=== PATIENT | female | born 2005 | race Caucasian/White ===

== ENCOUNTER 2023-10-28 08:27 | Inpatient (IN) | payer OTHER, SELFPAY ==
[2023-10-28] MEDS ORDERED: Ondansetron ODT 4 MG TAB PO PRN (10:09)
[2023-10-28] MEDS ORDERED: Senokot S 8.6-50 MG TAB PO PRN (10:09)
[2023-10-28] MEDS ORDERED: Ondansetron PF 4 MG/2 ML Vial IVP PRN (10:09)
[2023-10-28] MEDS ORDERED: Calcium Carbonate 500 MG ChewTAB PO PRN (10:09)
[2023-10-28] MEDS ORDERED: Dextrose 5% in Water 1,000 ML IV PRN (10:14)
[2023-10-28] MEDS ORDERED: Glucagon 1 MG/ML KIT IM PRN (10:14)
[2023-10-28] MEDS ORDERED: HumaLOG 300 UNITS/3 ML VIAL SC PRN (10:14)
[2023-10-28] MEDS ORDERED: Dextrose 50% Abboject 50 ML SYRINGE SLOW IVP PRN ×2 (10:14→22:04)
[2023-10-28 10:57] VITALS: BMI 21.1
[2023-10-28] MEDS: Ipratropium/Albuterol 3 ML NEB NEB PRN ×4 (11:30→23:40)
[2023-10-28] MEDS ORDERED: Oseltamivir 75 MG CAP PO SCH (12:00)
[2023-10-28] MEDS: HumaLOG 300 UNITS/3 ML VIAL SC PRN ×2 (12:01→15:57)
[2023-10-28] MEDS ORDERED: Sodium Chloride 0.9% 1,000 ML IV SCH ×2 (12:30→21:00)
[2023-10-28] MEDS: Benzonatate 100 MG CAP PO PRN ×2 (13:19→21:51)
[2023-10-28] MEDS: Acetaminophen 325 MG TAB PO PRN ×2 (13:19→21:31)
[2023-10-28 15:09] LABS: #Monocytes 0.1 10x3/uL (0.0-1.1); #Neutrophils 5.9 10x3/uL (1.5-8.4); %Basophils 0.3 % (0.0-2.0); %Eosinophils 0.2 % (0.0-6.0); %Lymphocytes 3.9 % (18.0-47.0); %Monocytes 2.2 % (0.0-10.0); %Neutrophils 92.9 % (40.0-75.0); Hematocrit 40.9 % (34.9-44.5); Hemoglobin 13.5 g/dL (12.0-15.5); Mean Corpuscular Hemoglobin 28.7 pg (27.0-33.0); Mean Corpuscular Volume 86.8 fl (81.6-98.3); Mean Platelet Volume 9.3 fl (7.4-10.4); Platelet Count 265 10x3/uL (150-450); RBC Distribution Width 13.3 % (11.5-14.5); Red Blood Cell (RBC) Count 4.71 10x6/uL (3.90-5.03); White Blood Cell (WBC) Count 6.4 10x3/uL (3.5-10.5)
[2023-10-28 15:16] LABS: Anion Gap 14 mmol/L (10-20); BUN (Urea Nitrogen) 6 mg/dL (7.0-18.7); Calc. Creatinine Clearance 113 mL/min (70-130); Calcium 8.9 mg/dL (7.8-10.44); Carbon Dioxide 19 mmol/L (22-29); Chloride 105 mmol/L (98-107); Estimated GFR 113; Glucose 224 mg/dL (70-105); Magnesium 2.1 mg/dL (1.7-2.2); Potassium 4.1 mmol/L (3.5-5.1); Sodium 134 mmol/L (136-145)
[2023-10-28] MEDS ORDERED: methylPREDNISolone Sod Succ/PF 125 MG/2 ML VIAL IVP SCH (16:30)
[2023-10-28] MEDS ORDERED: Lactated Ringer's 1,000 ML IV SCH (20:30)
[2023-10-28] MEDS: Oseltamivir 75 MG CAP PO SCH (20:38)
[2023-10-28] MEDS ORDERED: Lantus 1000 UNITS/10 ML VIAL SC SCH (21:00)
[2023-10-28 21:26] LABS: #Monocytes 0.2 10x3/uL (0.0-1.1); #Neutrophils 10.1 10x3/uL (1.5-8.4); %Basophils 0.2 % (0.0-2.0); %Eosinophils 0.1 % (0.0-6.0); %Lymphocytes 2.2 % (18.0-47.0); %Monocytes 1.7 % (0.0-10.0); %Neutrophils 95.4 % (40.0-75.0); Hematocrit 43.6 % (34.9-44.5); Hemoglobin 14.4 g/dL (12.0-15.5); Mean Corpuscular Hemoglobin 28.6 pg (27.0-33.0); Mean Corpuscular Volume 86.7 fl (81.6-98.3); Mean Platelet Volume 9.5 fl (7.4-10.4); Platelet Count 263 10x3/uL (150-450); RBC Distribution Width 13.4 % (11.5-14.5); Red Blood Cell (RBC) Count 5.03 10x6/uL (3.90-5.03); White Blood Cell (WBC) Count 10.6 10x3/uL (3.5-10.5)
[2023-10-28] MEDS: cefTRIAXone\\ROCEPHIN 2 GM in Sodium Chloride 0.9% 100 ML IVPB SCH (21:29)
[2023-10-28 21:44] LABS: Anion Gap 19 mmol/L (10-20); BUN (Urea Nitrogen) 7 mg/dL (7.0-18.7); Calc. Creatinine Clearance 101 mL/min (70-130); Calcium 9.5 mg/dL (7.8-10.44); Carbon Dioxide 19 mmol/L (22-29); Chloride 99 mmol/L (98-107); Estimated GFR 99; Glucose 266 mg/dL (70-105); Phosphorus 3.6 mg/dL (2.3-4.7); Potassium 4.5 mmol/L (3.5-5.1); Sodium 132 mmol/L (136-145)
[2023-10-28] MEDS: Azithromycin 500 MG in Sodium Chloride 0.9% 250 ML 250 ML IVPB SCH (21:44)
[2023-10-28] MEDS ORDERED: Electrolyte Replacement Protocol 1 EACH IVPB PRN (22:04)
[2023-10-28] MEDS ORDERED: D5 1/2 NS w/20 mEq KCL 1,000 ML IV PRN (22:04)
[2023-10-28] MEDS ORDERED: NS 0.9% w/ 20 MEQ KCL 1,000 ML IV PRN (22:04)
[2023-10-28] MEDS ORDERED: Sodium Chloride 0.9% 1,000 ML IV PRN ×2 (22:04)
[2023-10-28] MEDS ORDERED: Dextrose 5 %-0.45 % NaCl 1,000 ML IV PRN (22:04)
[2023-10-28 22:11] LABS: Bilirubin Neg (Negative); Blood, Urine 10 (Negative); Clarity Clear (Clear); Glucose, Urine (Dipstick) >=1000 mg/dL (Negative); Ketone, Urine 150 mg/dL (Negative); Leukocyte Negative (Negative); Nitrite Negative (Negative); Protein, Urine (Dipstick) 30 mg/dl (Neg-Trace); Urobilinogen Normal mg/dL (Less than 2)
[2023-10-28 22:25] LABS: Bacteria/HPF None Seen HPF (None Seen); CAUTI Indications for Culture Fever or rigors; RBC/HPF 0-3 HPF (0-3); Urine Culture Reflex No No; WBC/HPF 0-3 HPF (0-3)
[2023-10-28] MEDS ORDERED: INSULIN REGULAR IN 0.9 % NACL 100 UNITS in Premix 1 BAG IVPB SCH (23:45)
[2023-10-28] MEDS: NS 0.9% w/ 20 MEQ KCL 1,000 ML IV PRN (23:55)
[2023-10-28] MEDS ORDERED: Magnesium 2 GM/50 ML(in water) 2 GM in Premix 1 BAG IVPB SCH (23:59)
[2023-10-29 00:11] LABS: Lactic Acid 1.2 mmol/L (0.5-2.2)
[2023-10-29] MEDS ORDERED: Lorazepam 2 MG/ML VIAL SLOW IVP SCH (00:15)
[2023-10-29] MEDS: NS 0.9% w/ 20 MEQ KCL 1,000 ML IV PRN (01:49)
[2023-10-29] MEDS: Ipratropium/Albuterol 3 ML NEB NEB PRN ×4 (03:15→18:29)
[2023-10-29 03:16] LABS: Hematocrit 38.7 % (34.9-44.5); Hemoglobin 12.8 g/dL (12.0-15.5); Mean Corpuscular HGB CONC 33.1 g/dL (32.0-36.0); Mean Corpuscular Hemoglobin 29.4 pg (27.0-33.0); Mean Platelet Volume 9.5 fl (7.4-10.4); Platelet Count 225 10x3/uL (150-450); RBC Distribution Width 13.4 % (11.5-14.5); Red Blood Cell (RBC) Count 4.35 10x6/uL (3.90-5.03); White Blood Cell (WBC) Count 10.1 10x3/uL (3.5-10.5)
[2023-10-29 03:36] LABS: MDiff Complete? YES
[2023-10-29 03:40] LABS: Band 18 % (5-11); Lymphocytes 6 % (28-48); Monocytes 3 % (0-4); Neutrophil 70 % (31-61); Reactive Lymphocytes 3 % (0-10)
[2023-10-29 03:43] LABS: Platelet Adequacy Comment Appears Adequate; RBC Morph Comment Within Normal Limits; Vacuoles SLIGHT
[2023-10-29] MEDS ORDERED: Budesonide 0.5 MG/2 ML NEB INH SCH (04:00)
[2023-10-29] MEDS: methylPREDNISolone Sod Succ 40 MG VIAL IVP SCH ×2 (04:01→15:42)
[2023-10-29 04:13] LABS: ALT (SGPT) 12 U/L (8-55); AST (SGOT) 29 U/L (5-34); Albumin 3.6 g/dL (3.5-5.0); Alkaline Phosphatase 56 U/L (40-100); Anion Gap 12 mmol/L (10-20); BUN (Urea Nitrogen) 6 mg/dL (7.0-18.7); Bilirubin, Total 0.2 mg/dL (0.2-1.2); Calc. Creatinine Clearance 126 mL/min (70-130); Calcium 8.3 mg/dL (7.8-10.44); Carbon Dioxide 21 mmol/L (22-29); Chloride 106 mmol/L (98-107); Estimated GFR 127; Globulin 2.8 g/dL (2.4-3.5); Glucose 97 mg/dL (70-105); Potassium 4.6 mmol/L (3.5-5.1); Protein, Total 6.4 g/dL (6.0-8.3); Sodium 134 mmol/L (136-145)
[2023-10-29] MEDS: Enoxaparin 40 MG (0.4 mL) SYRINGE SC SCH (08:01)
[2023-10-29] MEDS: Oseltamivir 75 MG CAP PO SCH ×2 (08:01→20:49)
[2023-10-29 08:08] LABS: Anion Gap 14 mmol/L (10-20); BUN (Urea Nitrogen) 5 mg/dL (7.0-18.7); Calc. Creatinine Clearance 132 mL/min (70-130); Calcium 8.6 mg/dL (7.8-10.44); Carbon Dioxide 19 mmol/L (22-29); Chloride 106 mmol/L (98-107); Estimated GFR 127; Glucose 197 mg/dL (70-105); Potassium 4.6 mmol/L (3.5-5.1); Sodium 134 mmol/L (136-145)
[2023-10-29] MEDS ORDERED: Lantus 1000 UNITS/10 ML VIAL SC SCH (11:45)
[2023-10-29] MEDS ORDERED: Sodium Chloride 0.9% 1,000 ML IV SCH (11:59)
[2023-10-29 15:21] LABS: Anion Gap 13 mmol/L (10-20); BUN (Urea Nitrogen) 7 mg/dL (7.0-18.7); Calc. Creatinine Clearance 121 mL/min (70-130); Calcium 8.6 mg/dL (7.8-10.44); Carbon Dioxide 22 mmol/L (22-29); Chloride 102 mmol/L (98-107); Estimated GFR 115; Glucose 287 mg/dL (70-105); Potassium 4.7 mmol/L (3.5-5.1); Sodium 132 mmol/L (136-145)
[2023-10-29] MEDS: HumaLOG 300 UNITS/3 ML VIAL SC PRN ×2 (15:21→20:30)
[2023-10-29 16:24] VITALS: BP 99/65; TEMP 98.5
[2023-10-29] MEDS: Budesonide 0.5 MG/2 ML NEB INH SCH (18:31)
[2023-10-29] MEDS: cefTRIAXone\\ROCEPHIN 2 GM in Sodium Chloride 0.9% 100 ML IVPB SCH (20:49)
[2023-10-29] MEDS: Azithromycin 500 MG in Sodium Chloride 0.9% 250 ML 250 ML IVPB SCH (20:50)
[2023-10-30] MEDS: HumaLOG 300 UNITS/3 ML VIAL SC PRN ×3 (00:36→12:47)
[2023-10-30 03:15] LABS: #Eosinphils 0.1 10x3/uL (0.0-0.5); #Monocytes 0.5 10x3/uL (0.0-1.1); #Neutrophils 6.4 10x3/uL (1.5-8.4); %Basophils 0.2 % (0.0-2.0); %Eosinophils 0.8 % (0.0-6.0); %Lymphocytes 14.3 % (18.0-47.0); %Monocytes 6.4 % (0.0-10.0); %Neutrophils 77.8 % (40.0-75.0); Hematocrit 38.1 % (34.9-44.5); Hemoglobin 12.8 g/dL (12.0-15.5); Mean Corpuscular HGB CONC 33.6 g/dL (32.0-36.0); Mean Corpuscular Hemoglobin 29.4 pg (27.0-33.0); Mean Corpuscular Volume 87.6 fl (81.6-98.3); Mean Platelet Volume 9.7 fl (7.4-10.4); Platelet Count 236 10x3/uL (150-450); RBC Distribution Width 13.6 % (11.5-14.5); Red Blood Cell (RBC) Count 4.35 10x6/uL (3.90-5.03); White Blood Cell (WBC) Count 8.3 10x3/uL (3.5-10.5)
[2023-10-30 03:25] LABS: Anion Gap 14 mmol/L (10-20); BUN (Urea Nitrogen) 9 mg/dL (7.0-18.7); Calc. Creatinine Clearance 118 mL/min (70-130); Calcium 8.7 mg/dL (7.8-10.44); Carbon Dioxide 24 mmol/L (22-29); Chloride 100 mmol/L (98-107); Estimated GFR 111; Glucose 347 mg/dL (70-105); Potassium 4.6 mmol/L (3.5-5.1); Sodium 133 mmol/L (136-145)
[2023-10-30] MEDS: methylPREDNISolone Sod Succ 40 MG VIAL IVP SCH (04:43)
[2023-10-30] MEDS: Budesonide 0.5 MG/2 ML NEB INH SCH (07:02)
[2023-10-30] MEDS: Ipratropium/Albuterol 3 ML NEB NEB PRN (07:06)
[2023-10-30] MEDS: Enoxaparin 40 MG (0.4 mL) SYRINGE SC SCH (08:01)
[2023-10-30] MEDS: Oseltamivir 75 MG CAP PO SCH (08:09)
[2023-10-30] MEDS ORDERED: Lantus 1000 UNITS/10 ML VIAL SC SCH ×2 (08:30→09:00)
[2023-10-30] MEDS ORDERED: DEXTROAMPHETAMINE PO SCH (09:00)
[2023-10-30] MEDS ORDERED: AMPHETAMINE PO SCH (09:00)
[2023-10-30] MEDS ORDERED: [UNRECOGNIZED DRUG - OTHER] PO SCH (09:00)
[2023-10-30] MEDS ORDERED: Ipratropium/Albuterol 3 ML NEB ONE (19:12)
[2023-10-30] MEDS ORDERED: Budesonide 0.5 MG/2 ML NEB ONE (19:12)
[2023-10-31] MEDS ORDERED: Lantus 1000 UNITS/10 ML VIAL SC SCH (21:00)
== END 2023-10-30 19:05 | disposition home or self-care (01) | DRG 871 ==
LOC: CSHTELE 09:28 → CSHIMCU 23:21 → CSHTELE 10-30 14:41
PROVIDERS: ADMIT Internal Medicine; ATTEND Internal Medicine
DX: A41.89 Other specified sepsis (principal); J10.00 Influenza due to other identified influenza virus with unspecified type of pneumonia; J96.01 Acute respiratory failure with hypoxia; F90.9 Attention-deficit hyperactivity disorder, unspecified type; E10.65 Type 1 diabetes mellitus with hyperglycemia; R65.20 Severe sepsis without septic shock; Z79.4 Long term (current) use of insulin; Z79.899 Other long term (current) drug therapy
CPT/HCPCS: 36415; 36416; 71045; 80048; 80053; 81001; 82010; 83605; 83735; 84100; 84145; 85025; 87040; 87070; 87205; 94640; 94760; 94762; J0456; J0696; J1815; J2060; J2405; J2920; J2930; J3475; J3480; J3490; J7050; J7120; J7620; J7626; J7999